=== PATIENT | female | born 1940 | race Caucasian/White ===

== ENCOUNTER → 2016-08-28 | Outpatient (CLI) | payer OTHER, MEDICARE ==
--- NOTE | 2016-08-28 17:04 | DX ---
Chest, PA and Lateral History: COPD Comparison: November 28, 2010 . Findings: Prominent lung volumes are stable Lungs are clear, without infiltrate or consolidation. Hea rt size and pulmonary vascularity are normal. There is chronic atherosclerotic calcification of the m ildly tortuous thoracic aorta and brachiocephalic vessels. Calcification of the abdominal aorta is no rmal in size. There is no adenopathy or mass lesion. There is no pleural effusion or pneumothorax. Th ere is a stable mild thoracic lumbar scoliosis. Right upper quadrant surgical clips suggest prior cho lecystectomy. Impression: COPD. Nothing acute identified.
== END ==
LOC: CIMAGING 13:45
PROVIDERS: ATTEND Internal Medicine Pulmonary Disease
DX: J44.9 Chronic obstructive pulmonary disease, unspecified (principal)
CPT/HCPCS: 71020-PO

== ENCOUNTER → 2017-07-11 | Outpatient (CLI) | payer OTHER, MEDICARE | LOC: CIMAGING 12:22 | PROVIDERS: ATTEND Family Medicine | DX: Z12.31 Encounter for screening mammogram for malignant neoplasm of breast (principal) | CPT/HCPCS: G0202 ==

== ENCOUNTER → 2017-08-05 | Outpatient (CLI) | payer OTHER, MEDICARE | LOC: BHFA 15:30 | PROVIDERS: ATTEND Internal Medicine Cardiovascular Disease | DX: R55 Syncope and collapse (principal); I10 Essential (primary) hypertension ==

== ENCOUNTER → 2017-08-13 | Outpatient (CLI) | payer OTHER, MEDICARE | LOC: BHFA 09:30 | PROVIDERS: ATTEND Internal Medicine Cardiovascular Disease | DX: R55 Syncope and collapse (principal) | CPT/HCPCS: 78452; 93017; A9500; J2785 ==

== ENCOUNTER → 2017-10-13 | Outpatient (CLI) | payer OTHER, MEDICARE | LOC: FIMAGING 12:37 | PROVIDERS: ATTEND Family Medicine | DX: Z13.820 Encounter for screening for osteoporosis (principal); M85.89 Other specified disorders of bone density and structure, multiple sites; Z78.0 Asymptomatic menopausal state ==

== ENCOUNTER → 2018-07-15 | Outpatient (CLI) | payer OTHER, MEDICARE | LOC: CIMAGING 10:19 | PROVIDERS: ATTEND Family Medicine | DX: Z12.31 Encounter for screening mammogram for malignant neoplasm of breast (principal) ==

== ENCOUNTER → 2018-07-24 | Outpatient (CLI) | payer OTHER, MEDICARE ==
[~2018-07-24] MED LIST: FLUORESCEIN SODIUM 1 MG STRIP OP ONE
== END ==
LOC: CIMAGING 12:59
PROVIDERS: ATTEND Family Medicine
DX: R92.8 Other abnormal and inconclusive findings on diagnostic imaging of breast (principal)
CPT/HCPCS: 76641-PO